=== PATIENT | male | born 1950 | race Hispanic/Latino ===

== ENCOUNTER 2016-11-29 09:31 | Day surgery (SDC) | payer MEDICARE ==
[~2016-11-29 09:31] MED LIST: MIOSTAT OD ONE
--- NOTE | 2016-11-29 11:05 | Anesthesia Consultation ---
Anesthesia Consult and Med Hx Date of service: 11/29/16 - Airway Anesthetic Teeth Evaluation: Edentulous ROM Head & Neck: Adequate Mental/Hyoid Distance: Adequate Mallampati Class: Class II Intubation Access Assessment: Probably Good - Pulmonary Exam CTA: No (exp wheeze) - Cardiac Exam Cardiac Exam: RRR - Pre-Operative Health Status ASA Pre-Surgery Classification: ASA4 Proposed Anesthetic Plan: MAC - Pulmonary Hx Smoking: Yes SOB: Yes COPD: Yes Hx Pneumonia: Yes - Cardiovascular System Hx Hypertension: Yes (CHF)
--- NOTE | 2016-11-29 11:12 | Anesthesia Day of Surgery ---
Anesthesia Day of Surgery - Day of Surgery Patient Examined: Yes Patient H&P Reviewed: Yes Patient is NPO: Yes
[2016-11-29] MEDS ORDERED: TETRACAINE 0.5% OD NR (11:15)
[2016-11-29] MEDS ORDERED: PROVENTIL IH NR (11:15)
[2016-11-29] MEDS ORDERED: SUBLIMAZE ONE (11:22)
[2016-11-29] MEDS ORDERED: VERSED ONE (11:22)
[2016-11-29] MEDS ORDERED: VIGAMOX ONE (11:25)
[2016-11-29] MEDS ORDERED: TETRACAINE 0.5% ONE (11:25)
[2016-11-29] MEDS ORDERED: MYDRIACYL ONE (11:25)
[2016-11-29] MEDS ORDERED: AK-Dilate ONE (11:25)
[2016-11-29] MEDS: AK-Dilate OD SCH ×3 (11:30→11:40)
[2016-11-29] MEDS: VIGAMOX OD SCH ×3 (11:30→11:40)
[2016-11-29] MEDS: MYDRIACYL OD SCH ×3 (11:30→11:40)
[2016-11-29] MEDS ORDERED: NEOFRIN OU NR (12:00)
[2016-11-29] MEDS ORDERED: MIOSTAT OD ONE (12:06)
--- NOTE | 2016-11-29 12:15 | Operative Report ---
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 SKILLED NURSING FACILITY COUNSELOR SURGEON: Clif Lens: [id number] 27.0 D ANESTHESIA: Monitored anesthesia care in combination with topical and intracameral anesthesia because of the established specific risk of reflux, arrhythmias, or anxiety attacks associated with ocular manipulation, as well as the difficulty of the support group manager to manage such potentially catastrophic events while simultaneously attempting to complete the surgical procedure and was deemed necessary for the patient's safety to have an Dry Plasterer Helper present during the procedure whenever possible. An Dry Plasterer Helper was utilized to regulate the intravenous sedation of the patient so the patient was cooperative yet not asleep in order for the patient to successfully maintain fixation of the eye on the operating light of the microscope. COMPLICATIONS: No surgical complications No blood loss. ALLERGIES: No known drug allergies PROGNOSIS: Excellent INDICATIONS FOR SURGERY: The patient is undergoing surgery in the hopes of eliminating or improving these visual difficulties. PROCEDURE: After arriving at the surgery center, the patient was given topical anesthetic and dilating drops, as noted in the record. The patient was then taken into the operating room and given more anesthetic drops. The eyelids , lashes, and lid margins were scrubbed with Betadine solution, and the patient was draped. The Nurse Dry Plasterer Helper administered IV sedation and monitored the patient during the procedure. The eye was then fixated with a 0.12, and a stab incision was made in the peripheral clear cornea into the anterior chamber. This was made on my left side. Viscoelastic was next used to fill the anterior chamber. The eye was once again fixated with the 0.12 forceps and a keratome was used make an incision in clear cornea peripherally on my right hand side temporally. The capsule forceps were used to open the central anterior capsule and then make a continuous round capsulotomy. The kruglin hook was used to remove posterior synechiae. Hydrodissection was carried out utilizing a cannula and balanced salt solution to delineate the cortical material from the capsule and the nucleus from the cortical material. The phaco tip was introduced into the eye and used to remove the anterior cortical material in the area of the capsulotomy. Then the phaco tip was buried into the nucleus, and a chopping instrument was introduced into the eye and used to provide countertraction in the nucleus between this instrument and the phaco tip fracturing the nucleus. This procedure was repeated multiple times, providing multiple small segments of the lens, and then the phaco tip was used to remove each of these segments. An I/A tip was then used to remove the remaining cortex. The anterior chamber was refilled with viscoelastic. An one-piece, acrylic intraocular lens was then placed into an inserting cartridge. The tip of the inserting cartridge was introduced into the keratome incision and into the anterior chamber. The implant was gently advanced through the cartridge and into the eye, where it unfolded, and both haptics were placed in the capsular bag, where it centered nicely and appeared to be well fixated. After placement of the intraocular lens, the I~and~A handpiece was placed back into the eye and used to remove the viscoelastic, including viscoelastic that was behind the optic of the intraocular lens. The anterior chamber was then filled with balanced salt solution, and hydration of the wound was used to cause swelling of the wound and more appropriate watertight closure. When the wound was found to be firm, the patient was asked to comment on how bright the light was. If there was no light perception at all or if the light was substantially dimmer than during the rest of the surgery, the amount of fluid in the eye was decompressed to lower the intraocular pressure until the patient could see the bright light again. This was done to avoid any damage or decreased blood flow to the optic nerve. MEDICATIONS APPLIED AT END OF SURGERY: One drop of Pred Forte and Vigamox The patient was given a shield to wear at night and was instructed not to rub or push on the eye. DISCHARGE SUMMARY: The patient was released in stable condition. The patient and those with the patient were given a written sheet of postoperative instructions and counseling on any abnormal laboratory studies. The patient is to see us tomorrow for follow-up in the office and is to call immediately for any difficulties. Rina Rodrigues M.D. Date
--- NOTE | 2016-11-29 12:19 | Short Stay Summary ---
Short Stay Documentation Date of service: 11/29/16 - History H&P: obtained from office - Allergies and Medications Current Medications: Allergies No Known Allergies Allergy (Verified 04/21/15 14:31) Home Medications Medication Instructions Recorded Confirmed Last Taken Type Budesoni/Formotero 160-4.5(Nf) 10.2 gm IH QDAY 03/06/14 04/21/15 03/06/14 History [Symbicort 160-4.5] 10.2 Cyclobenzaprine [Flexeril 10mg] 10 mg PO TID PRN #30 tablet 03/06/14 04/21/15 Unknown Rx Furosemide [Lasix] 20 mg PO QDAY 03/06/14 04/21/15 Unknown History Ibuprofen [Motrin] 800 mg PO Q8H #30 tablet 03/06/14 04/21/15 Unknown Rx Lisinopril 10 mg PO QDAY 03/06/14 04/21/15 03/06/14 History 10 methylPREDNISolone [Medrol Dose 4 mg PO DAILY 6 Days 03/06/14 04/21/15 Unknown Rx Luke] traMADol [Ultram 50 MG tab] 50 mg PO Q6HR PRN #30 tablet 03/06/14 04/21/15 Unknown Rx Levofloxacin [Levaquin TAB] 500 mg PO QDAY 04/21/15 04/21/15 Unknown History Oxycodone HCl/Acetaminophen 1 each PO Q8HR PRN 04/22/15 04/22/15 Unknown History [Percocet 10/325 mg] Albuterol Sulfate [Ventolin HFA] 2 puff IH Q4H PRN #1 pump 04/24/15 Unknown Rx Prednisone [predniSONE 5 mg (6-Day 5 mg PO .TAPER #1 tab.ds.pk 04/24/15 Unknown Rx Pack, 21 Tabs)] Active Medications Albuterol (Proventil) 2.5 mg IH PREOP NR Stop: 11/29/16 23:59 Moxifloxacin HCl (Vigamox) 1 drops OD Q5MIN SHABANA Stop: 12/01/16 11:16 Phenylephrine HCl (Neofrin) 1 drops OU PREOP NR Prednisolone Acetate (Pred Forte 1%) 1 drops OD QID SH[facility] Tetracaine HCl (Tetracaine 0.5%) 1 drops OD PREOP ONE Stop: 11/29/16 11:16 Tropicamide (Mydriacyl) 1 drops OD Q5MIN [place] Stop: 12/01/16 11:16 - Brief post op/procedure progress note Date of procedure: 11/29/16 Pre-op diagnosis: traumatic cataract Post-op diagnosis: same Procedure: Phacoemulsification with intraocular lens insertion right eye and synechilolysis right eye Anesthesia: MAC Surgeon: CHAYO PLEITEZ Estimated blood loss: none Pathology: none Condition: stable - Disposition Condition at discharge: Good Disposition: DC-01 TO HOME OR SELFCARE - Discharge Diagnoses (1) Traumatic cataract of right eye Status: Resolved Qualifiers: Traumatic cataract type: total Qualified Code(s): H26.131 - Total traumatic cataract, right eye (2) Posterior synechiae of right eye Status: Resolved Short Stay Discharge Plan Follow up with: PRIMARY CAREMD [Primary Care Provider] - 7 Days
[2016-11-29 12:20] VITALS: BP 155/65
--- NOTE | 2016-11-29 12:53 | Post Anesthesia Evaluation ---
- Post Anesthesia Evaluation Patient Participated: Yes Airway Patent: Yes Stable Respiratory Function: Yes Temp > 96.8F: Yes Pain Manageable: Yes Adequeate Hydration: Yes Anesthesia Complications: No Block Receding Appropriately: Not Applicable
[2016-11-29] MEDS ORDERED: PRED FORTE 1% ONE (13:32)
[2016-11-29] MEDS ORDERED: PRED FORTE 1% OD SCH (14:00)
== END 2016-11-29 13:10 | disposition home or self-care (01) ==
LOC: OR 09:31
DX: H26.101 Unspecified traumatic cataract, right eye (principal); H21.541 Posterior synechiae (iris), right eye; M19.90 Unspecified osteoarthritis, unspecified site; I11.0 Hypertensive heart disease with heart failure; I50.9 Heart failure, unspecified; J44.9 Chronic obstructive pulmonary disease, unspecified; Z86.79 Personal history of other diseases of the circulatory system; Z79.899 Other long term (current) drug therapy; Z87.891 Personal history of nicotine dependence; Z87.01 Personal history of pneumonia (recurrent)
CPT/HCPCS: 66984; J2250; J3010; V2632

== ENCOUNTER 2018-02-20 09:12 | Day surgery (SDC) | payer MEDICARE ==
[~2018-02-20 09:12] MED LIST changes: -MIOSTAT OD ONE; +TETRACAINE 0.5% OS PRN
[2018-02-20] MEDS: VIGAMOX OS SCH ×3 (09:58→10:20)
[2018-02-20] MEDS: AK-Dilate OS SCH ×3 (09:58→10:21)
[2018-02-20] MEDS: MYDRIACYL OS SCH ×3 (09:59→10:21)
[2018-02-20] MEDS ORDERED: ATROVENT IH ONE (10:36)
[2018-02-20] MEDS ORDERED: PROVENTIL IH ONE (10:37)
[2018-02-20] MEDS ORDERED: PROVENTIL IH NR (10:45)
[2018-02-20] MEDS ORDERED: ATROVENT IH NR (10:45)
[2018-02-20] MEDS ORDERED: SUBLIMAZE ONE (10:50)
[2018-02-20] MEDS ORDERED: VERSED ONE (10:50)
--- NOTE | 2018-02-20 10:53 | Anesthesia Day of Surgery ---
Anesthesia Day of Surgery - Day of Surgery Patient Examined: Yes Patient H&P Reviewed: Yes Patient is NPO: Yes Beta Blockers: Yes
--- NOTE | 2018-02-20 10:53 | Anesthesia Consultation ---
Anesthesia Consult and Med Hx Date of service: 02/20/18 - Airway Anesthetic Teeth Evaluation: Edentulous ROM Head & Neck: Adequate Mental/Hyoid Distance: Adequate Mallampati Class: Class I Intubation Access Assessment: Good - Pulmonary Exam CTA: No (scattered b/l wheezing) - Cardiac Exam Cardiac Exam: RRR - Pre-Operative Health Status ASA Pre-Surgery Classification: ASA4 Proposed Anesthetic Plan: MAC - Pulmonary Hx Smoking: Yes SOB: Yes (symptoms at baseline) COPD: Yes Home Oxygen Therapy: Yes (1.5-2L NC) Hx Pneumonia: Yes Hx Sleep Apnea: No (HIGH RISK) - Cardiovascular System Hx Hypertension: Yes Hx Heart Attack/AMI: No (Hx CHF; no signs of decompensation today) Hx Cardia Arrhythmia: No Hx Pacemaker: No Hx Internal Defibrillator: No - Central Nervous System CVA: No Hx Back Pain: Yes - Gastrointestinal Hx Gastroesophageal Reflux Disease: No - Endocrine Hx Renal Disease: No Hx Liver Disease: No Hx Insulin Dependent Diabetes: No Hx Thyroid Disease: No - Other Systems Hx Alcohol Use: Yes (OCCASIONAL) Hx Substance Use: No Hx Cancer: No - Additional Comments Anesthesia Medical History Comments: States that he is able to lie flat for the time required to complete the planned surgical procedure.
--- NOTE | 2018-02-20 11:25 | Operative Report ---
Operative Report Operative Report: PATIENT'S NAME: DATE OF : DATE OF SURGERY: 02/20/2018 PREOPERATIVE DIAGNOSIS: Cataract left eye POSTOPERATIVE DIAGNOSIS: Same OPERATIVE PROCEDURE: Phacoemulsification with intraocular lens implantation, left eye SURGEON: Rina Rodrigues M.D. EXCELSIOR MACHINE FEEDER SURGEON: Clif Lens: [id number] 24.0 D ANESTHESIA: Monitored anesthesia care in combination with topical and intracameral anesthesia because of the established specific risk of reflux, arrhythmias, or anxiety attacks associated with ocular manipulation, as well as the difficulty of the import clerk to manage such potentially catastrophic events while simultaneously attempting to complete the surgical procedure and was deemed necessary for the patient's safety to have an Material Handling Crew Supervisor present during the procedure whenever possible. An Material Handling Crew Supervisor was utilized to regulate the intravenous sedation of the patient so the patient was cooperative yet not asleep in order for the patient to successfully maintain fixation of the eye on the operating light of the microscope. COMPLICATIONS: No surgical complications No blood loss. ALLERGIES: No known drug allergies PROGNOSIS: Excellent INDICATIONS FOR SURGERY: The patient is undergoing surgery in the hopes of eliminating or improving these visual difficulties. PROCEDURE: After arriving at the surgery center, the patient was given topical anesthetic and dilating drops, as noted in the record. The patient was then taken into the operating room and given more anesthetic drops. The eyelids , lashes, and lid margins were scrubbed with Betadine solution, and the patient was draped. The Nurse Material Handling Crew Supervisor administered IV sedation and monitored the patient during the procedure. The eye was then fixated with a 0.12, and a stab incision was made in the peripheral clear cornea into the anterior chamber. This was made on my left side. Viscoelastic was next used to fill the anterior chamber. The eye was once again fixated with the 0.12 forceps and a keratome was used make an incision in clear cornea peripherally on my right hand side temporally. The capsule forceps were used to open the central anterior capsule and then make a continuous round capsulotomy. Hydrodissection was carried out utilizing a cannula and balanced salt solution to delineate the cortical material from the capsule and the nucleus from the cortical material. The phaco tip was introduced into the eye and used to remove the anterior cortical material in the area of the capsulotomy. Then the phaco tip was buried into the nucleus, and a chopping instrument was introduced into the eye and used to provide countertraction in the nucleus between this instrument and the phaco tip fracturing the nucleus. This procedure was repeated multiple times, providing multiple small segments of the lens, and then the phaco tip was used to remove each of these segments. An I/A tip was then used to remove the remaining cortex. The anterior chamber was refilled with viscoelastic. An one-piece, acrylic intraocular lens was then placed into an inserting cartridge. The tip of the inserting cartridge was introduced into the keratome incision and into the anterior chamber. The implant was gently advanced through the cartridge and into the eye, where it unfolded, and both haptics were placed in the capsular bag, where it centered nicely and appeared to be well fixated. After placement of the intraocular lens, the I~and~A handpiece was placed back into the eye and used to remove the viscoelastic, including viscoelastic that was behind the optic of the intraocular lens. The anterior chamber was then filled with balanced salt solution, and hydration of the wound was used to cause swelling of the wound and more appropriate watertight closure. When the wound was found to be firm, the patient was asked to comment on how bright the light was. If there was no light perception at all or if the light was substantially dimmer than during the rest of the surgery, the amount of fluid in the eye was decompressed to lower the intraocular pressure until the patient could see the bright light again. This was done to avoid any damage or decreased blood flow to the optic nerve. MEDICATIONS APPLIED AT END OF SURGERY: One drop of Pred Forte and Vigamox The patient was given a shield to wear at night and was instructed not to rub or push on the eye. DISCHARGE SUMMARY: The patient was released in stable condition. The patient and those with the patient were given a written sheet of postoperative instructions and counseling on any abnormal laboratory studies. The patient is to see us tomorrow for follow-up in the office and is to call immediately for any difficulties. Rina Rodrigues M.D. Date
--- NOTE | 2018-02-20 11:26 | Short Stay Summary ---
Short Stay Documentation Date of service: 02/20/18 - History H&P: obtained from office - Allergies and Medications Current Medications: Allergies No Known Allergies Allergy (Verified 02/19/18 13:50) Home Medications Medication Instructions Recorded Confirmed Last Taken Type Budesoni/Formotero 160-4.5(Nf) 10.2 gm IH QDAY 03/06/14 02/20/18 02/19/18 20:00 History [Symbicort 160-4.5] Furosemide [Lasix] 20 mg PO QDAY 03/06/14 02/20/18 02/19/18 20:00 History Albuterol Sulfate [Ventolin HFA] 2 puff IH Q4H PRN #1 pump 04/24/15 02/20/18 05:00 Rx Meloxicam, Submicronized [Vivlodex] 5 mg PO DAILY 06/12/17 02/19/18 Unknown History Tamsulosin HCl [Flomax] 0.4 mg PO DAILY 06/12/17 02/20/18 02/19/18 11:00 History Metoprolol 25 mg PO BID 02/20/18 02/20/18 02/19/18 17:00 History Active Medications Moxifloxacin HCl (Vigamox) 1 drops OS Q5MIN SH[facility] Stop: 02/22/18 06:01 Last Admin: 02/20/18 10:20 Dose: 1 drops Phenylephrine HCl (Ak-Dilate) 1 drops OS Q5MIN SH[facility] Stop: 02/22/18 06:01 Last Admin: 02/20/18 10:21 Dose: 1 drops Prednisolone Acetate (Pred Forte 1%) 1 drops OS QID SHABANA Tetracaine HCl (Tetracaine 0.5%) 1 drops OS Q5M PRN PRN Reason: ANALGESIA Last Admin: 02/20/18 09:58 Dose: 1 drops Tropicamide (Mydriacyl) 1 drops OS Q5MIN [facility] Stop: 02/22/18 06:01 Last Admin: 02/20/18 10:21 Dose: 1 drops - Brief post op/procedure progress note Date of procedure: 02/20/18 Pre-op diagnosis: sclerotic cataract left eye Post-op diagnosis: same Procedure: Phacoemulsification with intraocular lens insertion left eye Anesthesia: MAC, local Surgeon: CHAYO PLEITEZ Estimated blood loss: none Pathology: none Condition: stable - Disposition Condition at discharge: Good Disposition: DC-01 TO HOME OR SELFCARE - Discharge Diagnoses (1) Cataract, nuclear sclerotic, left eye Status: Resolved Short Stay Discharge Plan Follow up with: PRIMARY CARE, [Primary Care Provider] - 7 Days
[2018-02-20] MEDS ORDERED: PRED FORTE 1% OS SCH (14:00)
[2018-02-20 17:30] VITALS: BP 140/59
== END 2018-02-20 13:00 | disposition home or self-care (01) ==
LOC: OR 09:12
DX: H25.12 Age-related nuclear cataract, left eye (principal); I11.0 Hypertensive heart disease with heart failure; I50.32 Chronic diastolic (congestive) heart failure; I25.2 Old myocardial infarction; J43.9 Emphysema, unspecified; M19.90 Unspecified osteoarthritis, unspecified site; Z72.89 Other problems related to lifestyle; Z98.890 Other specified postprocedural states; Z86.2 Personal history of diseases of the blood and blood-forming organs and certain disorders involving the immune mechanism; Z78.9 Other specified health status; Z87.891 Personal history of nicotine dependence; Z79.899 Other long term (current) drug therapy; Z98.41 Cataract extraction status, right eye
CPT/HCPCS: 66984; J2250; J3010; V2632